=== PATIENT | male | born 1975 | race Two or more races ===

== ENCOUNTER 2021-09-14 07:01 | Emergency (ER) | payer MEDICAID ==
[~2021-09-14] VITALS: Ht 177.8 cm; Wt 90.6 kg
[2021-09-14 07:06] VITALS: BP 153/105
[2021-09-14] MEDS ORDERED: IBUP-2029 MT (08:44)
== END 2021-09-14 09:15 | disposition home or self-care (01) ==
LOC: ER 07:01
DX: S42.011A Anterior displaced fracture of sternal end of right clavicle, initial encounter for closed fracture (principal); V19.9XXA Pedal cyclist (driver) (passenger) injured in unspecified traffic accident, initial encounter; Y93.55 Activity, bike riding; Y92.89 Other specified places as the place of occurrence of the external cause; Y99.9 Unspecified external cause status
CPT/HCPCS: 71045; 99283